=== PATIENT | male | born 1990 | race Caucasian/White ===

== ENCOUNTER 2017-03-13 19:54 | Emergency (ER) | payer BC ==
[2017-03-13 20:02] VITALS: RESP 18
[2017-03-13] MEDS ORDERED: NS 1,000 ML IV ONE ×4 (20:08→22:49)
--- NOTE | 2017-03-13 20:08 | EDPHY ---
H & P Stated Complaint: syncope 30 min ago Source: Patient Exam Limitations: No limitations - Personal History Current Tetanus/Diphtheria Vaccine: Yes Current Tetanus Diphtheria and Acellular Pertussis (TDAP): Yes - Medical/Surgical History Hx Asthma: No Hx Chronic Respiratory Disease: No Hx Diabetes: No Hx Cardiac Disease: No Hx Renal Disease: No Hx Cirrhosis: No Hx Alcoholism: No Hx HIV/AIDS: No Hx Splenectomy or Spleen Trauma: No - Social History Smoking Status: Never smoked Time Seen by Provider: 03/13/17 20:08 HPI/ROS: HPI: This is a 27-year-old male presents with Chief Complaint: Witnessed syncope Location: head Quality: Syncope Duration: Prior to arrival Signs and Symptoms: No fever, no neck stiffness, + generalized aching headache , no cough, no sore throat, + lightheadedness, no abdominal pain, no nausea, no vomiting, no chest pain, no palpitations, no shortness of breath Timing: Acute, resolved Severity: Moderate Context: Patient is visiting from [place] presents status post witnessed syncopal episode while at dinner with his girlfriend's family who is a physician press assistant student. Patient is that he has hardly drink any water today and has probably drank too many beers than he should. He had a dull aching generalized headache prior to dinner. While at dinner, he started to feel warm and faint, and then lightheaded. Girlfriend reports that he went pale and then fell backwards out of his chair. She jumped up and helped him to the ground. Denies hitting head. He did not come to right away and girlfriend approximates approximately 1 minute of LOC. He finally came to with his name calling. No incontinence/seizure activity. Right now he feels better and his headache is improving. Discussed the obtaining head CT scan imaging and patient and girlfriend believe this is related to dehydration and elevation change. A politely declined any head CT scan imaging. Modifying Factors: None Comment: ROS: see HPI Constitutional: No fever, no chills, no weight loss Eyes: No blurred vision Respiratory: No shortness of breath, no cough Cardiovascular: No chest pain Gastrointestinal: No nausea, no vomiting, no diarrhea Genitourinary: No dysuria Extremities: No myalgias Neurologic: No weakness, no numbness Skin: No rashes Hematologic: No bruising, no bleeding MEDICAL/SURGICAL/SOCIAL HISTORY: Medical history: Generally healthy. Does not take any regular medications. Surgical history: Denies Social history: Employed. CONSTITUTIONAL: Well-appearing adult white male, awake and alert, no obvious distress HEENT: Atraumatic and normocephalic, PERRL, EOMI. Tympanic membranes clear. Oropharynx clear, no exudate and moist pink mucosa. Airway patent. No lymphadenopathy. No meningismus. Cardiovascular: Normal S1/S2, regular rate, regular rhythm, without murmur rub or gallop. PULMONARY/CHEST: Symmetrical and nontender. Clear to auscultation bilaterally. Good air movement. No accessory muscle usage. ABDOMEN: Soft, nondistended, nontender, no rebound, no guarding, no peritoneal signs, no masses or organomegaly. No CVAT. EXTREMITIES: 2/2 pulses, strength 5/5, no deformities, no clubbing, no cyanosis or edema. NEUROLOGICAL: no focal neuro deficits. GCS 15. SKIN: Warm and dry, no erythema. no rash. Good capillary refill. (Sola Gates) Constitutional: Initial Vital Signs Temperature (C) 36.5 C 03/13/17 19:57 Heart Rate 87 03/13/17 19:57 Respiratory Rate 18 03/13/17 19:57 Blood Pressure 101/78 03/13/17 19:57 O2 Sat (%) 96 03/13/17 19:57 O2 Delivery Mode Room Air Allergies/Adverse Reactions: No Known Allergies Allergy (Unverified 03/13/17 19:56) Home Medications: Medication Instructions Recorded NK [No Known Home Meds] 03/13/17 Medical Decision Making - Diagnostics EKG Interpretation: 12 lead EKG: Indication: Syncope Rhythm: Normal sinus rhythm, rate 86 beats per minute [place]: Normal Intervals: Normal QRS: Normal ST segments: Normal T segments: Normal INTERPRETATION: No acute ischemic changes The 12 lead EKG was interpreted by myself and with attending. (Sola Gates) ED Course/Re-evaluation: EKG, labs, urinalysis, IV fluids ordered Tachycardia upon arrival. Afebrile. Given 4 L normal saline. GCS 15. No neurological deficits noted. EKG shows no signs of arrhythmia/acute ischemic changes + LOC but patient politely declines head CT scan imaging which I deem is reasonable. Will observe and hydrate. Labs reviewed; leukocytosis 15 K and lactic acidosis of 2.3 with normal BUN and creatinine of 1.1. Suspect inflammatory reaction to dehydration. Will repeat lactic acid in 4 hr after aggressive fluid hydration Repeat lactic acid improved and tachycardia resolved at discharge. Reassessed patient who reports that he is feeling much better. This patient was seen under the supervision of my secondary supervising physician. I evaluated care for this patient independently. Discussed this patient with Dr. Yuan who did not see the patient. (Sola Gates) Differential Diagnosis: Syncope including but not limited to vasovagal syncope, arrhythmia, dehydration , and blood loss. (Sola Gates) Other Provider: The patient was evaluated and managed by the Physician Graphic Engineer. I discussed the patient's presentation and course with the physician press assistant and agree with the evaluation. My co-signature indicates that I have reviewed this chart and I agree with the findings and plan of care as documented. I am the secondary supervising physician. (Tessa Yuan) - Data Points Laboratory Results: Laboratory Results 03/13/17 20:24 03/13/17 20:24 Medications Given: Discontinued Medications Sodium Chloride (Ns) 1,000 mls @ 0 mls/hr IV ONCE ONE; Wide Open PRN Reason: Protocol Stop: 03/13/17 20:09 Last Admin: 03/13/17 20:17 Dose: 1,000 mls Sodium Chloride (Ns) 1,000 mls @ 0 mls/hr IV EDNOW ONE; Wide Open PRN Reason: Protocol Stop: 03/13/17 20:19 Last Admin: 03/13/17 21:17 Dose: 1,000 mls Sodium Chloride (Ns) 1,000 mls @ 0 mls/hr IV EDNOW ONE; Wide Open PRN Reason: Protocol Stop: 03/13/17 21:05 Last Admin: 03/13/17 22:13 Dose: 1,000 mls Sodium Chloride (Ns) 1,000 mls @ 0 mls/hr IV EDNOW ONE; Wide Open PRN Reason: Protocol Stop: 03/13/17 22:50 Last Admin: 03/13/17 22:56 Dose: 1,000 mls Ondansetron HCl (Zofran) 4 mg IVP EDNOW ONE Stop: 03/13/17 20:26 Last Admin: 03/13/17 20:30 Dose: 4 mg Departure - Departure Disposition: Home, Routine, Self-Care Clinical Impression: Dehydration, Syncope, vasovagal Condition: Good Instructions: Dehydration (ED) Additional Instructions: Please avoid alcohol and drink plenty of fluids to prevent dehydration. Referrals: OTHER HEALTH CARE [facility],. [Glaciologist] - As per Instructions
--- NOTE | 2017-03-13 20:12 | CPEKG ---
Heart Rate: 86 RR Interval: 698 P-R Interval: 184 QRSD Interval: 100 QT Interval: 356 QTC Interval: 426 P [place]: 60 QRS [place]: 82 T Wave [place]: 22 EKG Severity - NORMAL ECG - EKG Impression: SINUS RHYTHM Electronically Signed By: Zana Faustin 14-Mar-2017 11:35:24
[2017-03-13] MEDS ORDERED: ONDANSETRON 4 MG/2 ML VIAL IVP ONE (20:25)
[2017-03-13 20:36] LABS: PLATELET COUNT 309 10^3/uL (150-400)
[2017-03-14 00:15] VITALS: BP 110/51; PULSE 95; TEMP 99.7; O2SAT 95
== END 2017-03-14 00:17 | disposition home or self-care (01) ==
DX: R55 Syncope and collapse (principal); E86.0 Dehydration; E86.9 Volume depletion, unspecified
CPT/HCPCS: 96374; J2405